=== PATIENT | female | born 2005 ===

== ENCOUNTER 2023-12-11 18:45 | Outpatient (CLI) | payer OTHER ==
[~2023-12-11] VITALS: Ht 165.1 cm; Wt 108.2 kg
[~2023-12-11 18:45] MED LIST: PNV-SELECT1 TAB PO
--- NOTE | 2023-12-11 19:05 | NUR ---
G1 L0, PT OF DR ROBLES, AMBULATORY TO UNIT ACCOMPANIED BY SPOUSE, MOTHER AND STAFF. SHOWN TO ROOM AND INTRUCTED TO CHANGE INTO GOWN. RN AT THE BEDSIDE. PT REPORTS SHE HAS BEEN HAVING CTX SINCE 0400 THIS MORNING, REPORTS THEY WERE 7-10 MINUTES APART, THEN BECAME MORE INTENSE AT 1800 THIS EVENING. PT ALSO REPORTS USING THE BATHROOM AT HOME AND HAVING AN EPISODE OF VAGINAL BLEEDING TWICE AT HOME. SHE DENIES ANY MORE BLEEDING ONCE ARRIVING ON THE UNIT. THIS RN INSPECTS THE PT LABIA AND SPREAD THE LABIA SOME AND DO NOT OBSERVE ANY BLEEDING, OLD BLOOD OR TRAUMA TO THE LABIA. PT DENIES ANY LOF AND CTX MILD BY PALPATION. PT DENIES ANY OTHER COMPLICATIONS WITH THIS .
[2023-12-11 19:15] VITALS: BP 135/93; PULSE 110
[2023-12-11 19:30] VITALS: BP 135/93; BP 138/79; PULSE 110; PULSE 92; TEMP 97.9
[2023-12-11 19:45] VITALS: BP 134/87; PULSE 90
[2023-12-11] MEDS ORDERED: LR 1,000 ML IV PRN (19:45)
[2023-12-11 20:00] VITALS: BP 133/83; PULSE 83
[2023-12-11 20:30] VITALS: BP 135/87; PULSE 89
== END 2023-12-11 20:35 ==
LOC: LDRO 18:45
DX: O47.1 False labor at or after 37 completed weeks of gestation (principal); O46.93 Antepartum hemorrhage, unspecified, third trimester; Z3A.38 38 weeks gestation of pregnancy

== ENCOUNTER 2023-12-12 12:13 | Inpatient (IN) | payer OTHER ==
[2023-12-12] VITALS (19 sets, daily range): BP systolic 112–167; BP diastolic 57–93; PULSE 83–108; TEMP 97.9–98.1
[~2023-12-12] VITALS: Ht 165.1 cm; Wt 108.2 kg
[2023-12-12] MEDS ORDERED: LR 1,000 ML IV PRN (12:30)
--- NOTE | 2023-12-12 12:32 | NUR ---
1225 PT ARRIVES ON UNIT COMPLAINING OF POTENTIAL SROM AT 1130 TODAY. PT STATES SHE WAS WALKING AND NOTICED "SOMETHING COME OUT". SHE STATES IT HAD A BROWN COLOR THEN TURNED TO A PINK MUCUSY COLOR. PT DENIES VB, DFM OR ANY TOHER COMPLAINTS. PT STATES SHE HAS BEEN [place] FOR A FEW DAYS AND CONTRACTS ABOUT EVERY 5 MINUTES. RN DISCUSSES POC WITH PT AND PT VERBALIZES UNDERSTANDING
--- NOTE | 2023-12-12 12:38 | NUR ---
1235 OSVALDO OH UPDATED ON PT ARRIVAL, HX, COMPLAINTS, SVE, AMNITRACE NEG, FHTS INCLUDING BABY IN 80'S BRIEFLY WHEN PT PLACED ON MONITOR. ORDERS TO MONITOR PT AND FHTS FOR AWHILE AND ASSESS FOR LEAKING OF FLUID DURING THAT TIME. RN RBVO.
--- NOTE | 2023-12-12 13:04 | NUR ---
1250 PT UPDATED ON POC AND PT VERBALIZES UNDERSTANDING AND HAS NO QUESTIONS
[2023-12-12] MEDS ORDERED: LR 1,000 ML IV SCH (13:45)
[2023-12-12] MEDS ORDERED: LR & Oxytocin 500 ML IV SCH (13:45)
--- NOTE | 2023-12-12 13:54 | NUR ---
7080 OSVALDO OH UPDATED ON PT EXPERIENCING LARGE GUSH OF FLUID, PAD UNDERNEATH PT SOAKED, RN TESTED WITH AMNITRACE THAT WAS POSITIVE. ORDERS TO SEND ROM + DOWN FOR CONFIRMATION. ORDERS TO ADMIT PT TO L&D AND SHE MAY HAVE EPIDURAL IF SHE DESIRES OR 50 MCG FENTANYL FOR PAIN. RN RBVO.
[2023-12-12 14:09] LABS: BASO % 0.3 % (0.0-2.0); EOS # 0.1 K/mm3 (0.0-0.7); EOS % 0.5 % (0.0-4.0); GRAN # 8.7 K/mm3 (1.4-6.5); GRAN % 76.9 % (42.2-75.2); HEMOGLOBIN 10.9 g/dl (12.0-15.0); LYMPH % 17.7 % (20.0-51.0); MEAN CELL VOLUME 78 fl (80.0-95.0); MEAN CORPUSCULAR HEMOGLOBIN 24 pg (26-32); MEAN CORPUSCULAR HGB CONC 31 g/dl (33.0-37.0); MEAN PLATELET VOLUME 13.5 fl (7.4-10.4); MONO # 0.5 K/mm3 (0.1-0.6); MONO % 4.3 % (1.7-9.3); PLATELET COUNT 308 K/mm3 (130-400); RED BLOOD COUNT 4.54 M/mm3 (4.10-5.30); REDCELL DISTRIBUTION WIDTH-CV 15.1 % (11.5-14.5)
[2023-12-12 14:10] LABS: HEMATOCRIT 35.4 % (35.0-45.0)
--- NOTE | 2023-12-12 15:44 | NUR ---
OSVALDO OH UPDATED ON ROM + NEG, SVE 3CM, FHTS REASSURING, CTX PATTERN, BAG FELT ON EXAM BUT FLUID NOTED ON CHUX. ORDERS TO ADMIT TO L&D AND ALLOW PT TO LABOR DESIRES. RN RBVO.
--- NOTE | 2023-12-12 16:32 | NUR ---
PT UP AMBULATING HALLS FROM [id number].
[2023-12-12] MEDS ORDERED: fentaNYL 50 MCG/ML 2 ML VIAL IV ONE (17:45)
--- NOTE | 2023-12-12 18:02 | NUR ---
OSVALDO OH BEDSIDE AT 1701. SCANS PT TO CONFIRM VERTEX POSITIONING ON INFANT. SVE PERFORMED, AROM WITH LIGHT MEC FLUID.
--- NOTE | 2023-12-12 18:30 | NUR ---
1818: PT TAKEN OF EFM AT THIS TIME, IS SITTING IN THE CHAIR, SPOUSE AND MOTHER AT THE BEDSIDE FOR SUPPORT. PT BREATHING THROUGH THE CTX.
--- NOTE | 2023-12-12 18:45 | NUR ---
PT IS ASKING FOR AN EPIDURAL AT THIS TIME. THIS RN INFORMS PT I WOULD LIKE TO PLACE THE MONITORS BACK ON HER AND START IV FLUIDS SO SHE CAN GET HER EPIDURAL. 1854: PT ASSISTED BACK INTO BED, MONITORS PLACED AND FLUIDS STARTED. ANESTHESIA NOTIFIED.
[2023-12-12] MEDS ORDERED: ROPivacaine PF 0.2% 200 ML IV ONE (19:16)
--- NOTE | 2023-12-12 19:30 | NUR ---
PT BACK IN BED, MONITORS IN PLACE AND FLUIDS INFUSING FOR EPIDURAL. SVE CHARTED. 1920: PT ASSISTED TO SITTING ON THE SIDE OF THE BED FOR EPIDURAL PLACEMENT. RN REMAINS AT THE BEDSIDE.
[2023-12-12] MEDS ORDERED: diphenhydrAMINE 50 MG/ML 1 ML VIAL IV PRN (19:45)
[2023-12-12] MEDS ORDERED: diphenhydrAMINE 25 MG CAP PO PRN (19:45)
[2023-12-12] MEDS ORDERED: Naloxone 0.4 MG/ML VIAL IV PRN (19:45)
[2023-12-12] MEDS ORDERED: ePHEDrine 50 MG/10 ML VIAL IV PRN (19:45)
[2023-12-12] MEDS ORDERED: Ondansetron 4 MG/2 ML VIAL IV PRN (19:45)
--- NOTE | 2023-12-12 23:00 | NUR ---
2252: LATE DECEL NOTED AT THIS TIME. PT REPOSITIONED FROM [facility] TO HER LEFT LATERAL SIDE. RN AT BEDSIDE ATTEMPTING TO OBTAIN HEART TONES. HEART RATE AUDIBLY HEARD IN THE 90'S TO LOW 100'S RN ATTEMPTS TO TRACE. RN UNABLE TO DETERMINE BASELINE OR IF LATE DECEL IS PROLONGED DUE TO BREAK IN TRACING DUE TO THE REPOSITIONING OF PT IN ATTEMPTS TO CORRECT THE DECEL.
--- NOTE | 2023-12-12 23:30 | NUR ---
2315: PT REPOSITIONED TO HER LEFT SIDE, RN AT BEDSIDE ATTEMPTING TO OBTAIN FHT. FHT AUDIBLY HEARD IN THE 80'S. 2317: PITOCIN STOPPED AT THIS TIME. 2322: US HELD IN PLACE BY THIS RN AND FHT IN THE 100'S, DR RILEY NOTIFIED OF CHANGE IN STATUS. PHONE ORDER FOR FSE OBTAINED. 2328: FSE PLACED AT THIS TIME.
--- NOTE | 2023-12-12 23:45 | NUR ---
2330: PT REPOSITIONED TO HER LEFT LATERAL SIDE. FSE IN PLACE AND TRACING. 2335: PT REPOSITIONED TO [facility], LEGS FROGGED OUTWARD. EARLY DECEL NOTED BY RN AT THE BEDSIDE. FHR 110'S WITH PT IN THIS POSITION. RN REMAINS AT THE BEDSIDE MONITORING STATUS.
[2023-12-13] VITALS (39 sets, daily range): BP systolic 96–164; BP diastolic 52–93; PULSE 63–109; TEMP 97.7–98.6
--- NOTE | 2023-12-13 02:00 | NUR ---
VARIABEL DECEL NOTED ON THIS TRACING. FHT ALSO WITH INTERMITTENT EARLY DECELS; GOOD VARIABILITY OBSERVED WITH ACCELS.
--- NOTE | 2023-12-13 02:30 | NUR ---
LATE DECEL INTO THE 90'S, RN AT THE BEDSIDE, ATTEMPTS TO REPOSITION PT TO LEFT LATERAL POSITION. FHR REMAINS IN THE 90'S. PT REPOSITIONED FOR SVE.
--- NOTE | 2023-12-13 02:45 | NUR ---
0232: SVE DOCUMENTED 0234: PT REPOSITIONED TO [facility] WITH LEGS FROGGED, FHR TRACED IN THE 100'S AT THIS TIME. RN REMAINS AT THE BEDSIDE 0238: PT COMPLAINS OF RIGHT HIP PAIN, SHE IS WEDGED TO THE LEFT WITH A PILLOW. 0239: O2 AT 8L PER SIMPLE MASK PLACED ON PT AT THIS TIME, DR RILEY AWARE OF CHANGE IN PT STATUS.
--- NOTE | 2023-12-13 03:15 | NUR ---
VARIABLE DECEL NOTED ON TRACING, GOOD VARIABILITY AND RECOVERY. RN AT BEDSIDE MONITORING STATUS.
--- NOTE | 2023-12-13 04:45 | NUR ---
FHR IN THE 90'S AFTER PT REPOSITIONED TO HER RIGHT LATERAL SIDE PER HER REQUEST. RN AT BEDSIDE MONITORING STATUS. SVE DOCUMENTED. PT VOICES COMPLAINT OF BILATERAL HIP AND BACK PAIN.
--- NOTE | 2023-12-13 05:00 | NUR ---
PT REPOSITIONED BACK TO [facility] WITH HER LEGS FROGGED. FHR 110'S AFTER PT IS REPOSITIONED. PILLOW PLACED UNDER HER RIGHT HIP FOR COMFORT. RN REMAINS AT THE BEDSIDE MONITORING MATERNAL AND STATUS.
--- NOTE | 2023-12-13 05:45 | NUR ---
PITOCIN INFUSION RESTARTED AT 0545 AT 2 mU.
[2023-12-13] MEDS ORDERED: oxyCODONE 5 MG TAB PO PRN (07:30)
[2023-12-13] MEDS ORDERED: Naloxone 0.4 MG/ML VIAL IV PRN (07:30)
[2023-12-13] MEDS ORDERED: Measles/Mumps/Rubella Virus Vaccine Live w Diluent 0.5 ML VIAL SQ SCH (07:30)
[2023-12-13] MEDS ORDERED: Witch Hazel 50% Pads Bulk TUB TP PRN (07:30)
[2023-12-13] MEDS ORDERED: Acetaminophen 500 MG TAB PO PRN (07:30)
[2023-12-13] MEDS ORDERED: Magnes Hydrox (MOM) 80 MG/ML 30 ML CUP PO PRN (07:30)
[2023-12-13] MEDS ORDERED: Loratadine 10 MG TAB PO PRN (07:30)
[2023-12-13] MEDS ORDERED: Mag/Al Hydrox/Simeth Susp 30 ML CUP PO PRN (07:30)
[2023-12-13] MEDS ORDERED: Phenylephrine/Mineral Oil/Petrolatum 57 GM TUBE RC PRN (07:30)
[2023-12-13] MEDS ORDERED: Ibuprofen 800 MG TAB PO SCH (07:30)
--- NOTE | 2023-12-13 07:49 | NUR ---
0640PT STATES SHE IS FEELING SOME VAGINAL AND RECTAL PRESSURE. 0645SVE PER THIS RN WITH A SECOND CHECK BY LYSSA ROBLES. /0. 0648PT POSITIONED TO RIGHT LATERAL WITH LEFT LEG STIRRUP. 0654DR ROBLES NOTIFIED. 0656FOLEY REMOVED AT THIS TIME. ROOM AND PT SET UP FOR DELIVERY. NURSERY NURSE NOTIFIED. 0658THIS RN BEGAN PUSHING WITH PT AT THIS TIME. GOOD MATERNAL EFFORT NOTED 0731DR ROBLES CALLED FOR DELIVERY. CHARGE NURSE AND NURSERY NURSE NOTIFIED OF IMPENDING DELIVERY. 0740DR ROBLES AT BEDSIDE. ROOM AND BED SET UP FOR IMPENDING DELIVERY. NURSERY AND CHARGE NURSE AT BEDSIDE. 0743FSE CAME OFF BABIES HEAD WHILE PUSHING. EFM USED FOR FHR. 0749LOOSE NUCHAL CORD X1 NOTED PER DR ROBLES. REDUCED OVER HEAD PER DR ROBLES. OF VIABLE MALE INFANT PER DR ROBLES. INFANT PLACED ON MATERNAL ABDOMEN. CARE ASSUMED BY NURSERY. 0751SVD OF PLACENTA PER DR ROBLES. FIRST DEGREE PERINEAL LACERATION NOTED PER DR ROBLES. FUNDUS FIRM AT U. LOCHIA WNL. REPAIR STARTED AT THIS TIME PER DR ROBLES. 0755REPAIR FINISHED PER DR ROBLES. FUNDUS FIRM AT U. LOCHIA WNL. 0800BED AND ROOM PUT BACK TOGETHER. PERICARE PERFORMED. CHUX PAD CHANGED. ICE PACK ON PERINEUM. PT COMFORTABLE IN BED. FUNDUS FIRM A U. LOCHIA WNL. PT VITAL SIGNS STABLE.
[2023-12-13] MEDS ORDERED: Sennosides/Docusate 8.6-50 MG TAB PO SCH (08:00)
[2023-12-13] MEDS ORDERED: MOTRIN 800800 MG/TAB PO (08:26)
--- NOTE | 2023-12-13 17:15 | NUR ---
THIS RN AT PT BEDSIDE ASSISTING AT THIS TIME. PT ATTEMPTING BREAST FEEDING AND REPORTS INFANT NOT LATCHING, PT EDUCATED TO CALL OUT NEXT TIME SHE IS ATTEMPTING SO THAT NURSES CAN ASSIST WITH LATCH AND FURTHER BREAST FEEDING EDUCATION. PT VERBALLY AGREES.
[2023-12-13] MEDS ORDERED: traZODone 50 MG TAB PO PRN (21:00)
[2023-12-14 00:10] VITALS: BP 118/77; PULSE 74; TEMP 97.3
[2023-12-14 04:45] VITALS: BP 117/79; PULSE 74; TEMP 97.9
[2023-12-14 08:15] VITALS: BP 132/75; PULSE 76; TEMP 98
--- NOTE | 2023-12-14 09:38 | NUR ---
Initial visit attempt; Family resting, Lehr Cutter left card of congratulations for the of their son and information regarding the availability of Spiritual Care at our [facility].
[2023-12-14 16:30] VITALS: BP 134/83; PULSE 105; TEMP 97.5
[2023-12-14 18:54] VITALS: BP 123/77; PULSE 79; TEMP 98.2
[2023-12-15 08:34] VITALS: BP 129/70; PULSE 73; TEMP 97.3
--- NOTE | 2023-12-15 11:55 | NUR ---
DISCHARGE INSTRUCTIONS REVIEWED WITH PT WITH EMPHASIS ON FOLLOW-UP, SELF-CARE, AND REASONS TO CALL/SEE PHYSICIAN. QUESTIONS INVITED AND ANSWERED. PT VERBALIZES UNDERSTANDING.
== END 2023-12-15 12:05 | disposition home or self-care (01) | DRG 807 ==
LOC: LDRO 12:13 → LDR 13:42 → OB 13:42
PROVIDERS: Obstetrics & Gynecology; ADMIT Obstetrics & Gynecology
PROC: 10E0XZZ Delivery of Products of Conception, External Approach (ICD-10-PCS; principal; 2023-12-13)
PROC: 0HQ9XZZ Repair Perineum Skin, External Approach (ICD-10-PCS; 2023-12-13)
DX: O99.214 Obesity complicating childbirth (principal); Z37.0 Single live birth; Z3A.38 38 weeks gestation of pregnancy; O77.0 Labor and delivery complicated by meconium in amniotic fluid; O69.81X0 Labor and delivery complicated by cord around neck, without compression, not applicable or unspecified; O70.0 First degree perineal laceration during delivery; O71.82 Other specified trauma to perineum and vulva; Z23 Encounter for immunization
CPT/HCPCS: J2405; J2590; J2795; J3010; J7120